=== PATIENT | male | born 1945 | race Caucasian/White ===

== ENCOUNTER → 2016-10-03 | Outpatient (CLI) | payer OTHER | LOC: FIMAGING 09:57 | PROVIDERS: ATTEND Internal Medicine Nephrology | DX: N18.3 Chronic kidney disease, stage 3 (moderate) (principal) ==

== ENCOUNTER → 2017-07-01 | Outpatient (CLI) | payer OTHER ==
[~2017-07-01] MED LIST: IOPAMIDOL (ISOVUE-300) 150 ML BTL ONE
== END ==
LOC: FIMAGING 11:21
PROVIDERS: ATTEND Physician Assistant Medical
DX: C61 Malignant neoplasm of prostate (principal); N13.30 Unspecified hydronephrosis; N20.0 Calculus of kidney
CPT/HCPCS: 74178; Q9967

== ENCOUNTER → 2017-07-14 | Outpatient (CLI) | payer OTHER ==
[~2017-07-14] MED LIST changes: +FUROSEMIDE 20 MG/2 ML VIAL ONE; +FUROSEMIDE 40 MG/4 ML VIAL ONE; -IOPAMIDOL (ISOVUE-300) 150 ML BTL ONE
== END ==
LOC: FIMAGING 12:39
PROVIDERS: ATTEND Physician Assistant Medical
DX: N13.0 Hydronephrosis with ureteropelvic junction obstruction (principal); C61 Malignant neoplasm of prostate
CPT/HCPCS: 78708; A9562; J1940

== ENCOUNTER → 2018-01-06 | Outpatient (CLI) | payer OTHER | LOC: FIMAGING 10:33 | PROVIDERS: ATTEND Physician Assistant Medical | DX: N20.1 Calculus of ureter (principal) | CPT/HCPCS: 78708; A9562; J1940 ==

== ENCOUNTER 2018-02-04 11:10 | Day surgery (SDC) | payer OTHER ==
--- NOTE | 2018-02-03 15:18 | GHP ---
DATE OF ADMISSION: 02/04/2018 This is a 72-year-old gentleman whom we have evaluated in the office, and he has a CAT scan that show s faint calcification of the proximal right ureter along with hydronephrosis. Mag 3 with Lasix showe d proximal obstruction of the right ureter with half-time of the T1 half excretion time of 19 minutes . At the present time, he is in to undergo right ureteroscopy with assessment of the proximal ureter . He has had a creatinine of 1.3 in 2018. PAST MEDICAL HISTORY: He has had atrial fibrillation, elevated PSA, and prostate cancer. PAST SURGICAL HISTORY: Lithotripsy, prostatectomy, tonsillectomy. MEDICATIONS: Aspirin, diltiazem, Synthroid. ALLERGIES: Codeine, phosphate, penicillins, and Pradaxa. FAMILY HISTORY: Colon cancer in family, heart disease, hypertension. SOCIAL HISTORY: Moderate alcohol consumption. Former smoker. REVIEW OF SYSTEMS: Negative cardiac, respiratory, GI, and endocrine. PHYSICAL EXAMINATION: VITAL SIGNS: Stable. CHEST: Clear. HEART: Regular rate and rhythm. ABDOM EN: Normal. No organomegaly, rebound, or guarding. He does have abdominal obesity, so at the present time he is admitted for the ureteroscopy. PLAN: We have discussed indications, complications associated with the procedure. Because of his mo rbid obesity, he has done as in the hospital and plan as an outpatient procedure, but if necessary wi ll be admitted overnight. /[id number]/MODL
--- NOTE | 2018-02-04 08:15 | PDHPUP ---
History & Physical Update H&P update statement: This history and physical update is based on an assessment of the patient which was completed after admission or registration (within 24 hours), but prior to the surgery/procedure. H&P update: H&P reviewed & patient examined, no change in patient's condition since H&P completed
[2018-02-04] MEDS ORDERED: ceFAZolin 2 GM/DEXTROSE 100 ML IV ONE (11:25)
[2018-02-04] MEDS ORDERED: LR 1,000 ML IV ONE (11:26)
[2018-02-04] MEDS ORDERED: LIDOCAINE 1% 2 ML INJ ID PRN (11:26)
--- NOTE | 2018-02-04 11:57 | POSTANESTH ---
Post Anesthetic Evaluation Cardiovascular Status: Normal, Stable Respiratory Status: Normal, Stable Level of Consciousness/Mental Status: Can Participate in Eval, Mildly Sleepy, Arousable Pain Control: Adequate, Prn Tx Ordered Nausea/Vomiting Control: Adequate, Prn Tx Ordered Complications Possibly Related to Anesthesia: None Noted
--- NOTE | 2018-02-04 12:01 | PDANEPAE ---
ANE History of Present Illness 72 yo male with multiple medical problems for ureteroscopy and stone removal. ANE Past Medical History - Cardiovascular History Hx Hypertension: No Hx Arrhythmias: Yes Hx Coronary Artery / Peripheral Vascular Disease: Yes Hx CHF / Valvular Disease: No Hx Palpitations: No Cardiovascular History Comment: 6 YR HX OF A -FIB 3 PREV CARDIOVERSIONS LAST CARDIOVERSION 04/2010; uncontrolled A-Fib led to AV node ablation and PM insertion - PM dependent! CHRONIC DYASTOLIC HEART FAILURE - Pulmonary History Hx COPD: Yes Hx Asthma/Reactive Airway Disease: No Hx Recent Upper Respiratory Infection: Yes Hx Oxygen in Use at Home: Yes O2 in Use at Home (L/minute): 4 Hx Sleep Apnea: Yes Sleep Apnea Screening Result - Last Documented: Positive Pulmonary History Comment: COPD. FARAZ BIPAP with 4 LPM O2 bleed in - Neurologic History Hx Cerebrovascular Accident: No Hx Seizures: No Hx Dementia: No - Endocrine History Hx Diabetes: No Hypothyroid: Yes Hyperthyroid: No Obesity: severe - Renal History Hx Renal Disorders: Yes Renal History Comment: RENAL INSUFFICIENCY. Kidney stones - Liver History Hx Hepatic Disorders: No - Neurological & Psychiatric Hx Hx Neurological and Psychiatric Disorders: No Neurological / Psychiatric History Comment: PERIPHERAL NEUROPATHY - Cancer History Hx Cancer: Yes Cancer History Comment: prostate, cyber knife readiation 2011 - Congenital Disorder History Hx Congenital Disorders: No - GI History Hx Gastrointestinal Disorders: Yes Gastrointestinal History Comment: CT showed diverticulosis. hiatal hernia - Other Health History Other Health History: MGUS. NON HEALING WOUND LT GALDAMEZ NOW HAS SCAB,TANG REDNESS. ARM RASH. CT scan showed plaque on aorta. SCLERA DERMA FOREARMS RESULT OF RX'S. OBESE HAS LOST 40LBS. NEUROPATHY - Chronic Pain History Chronic Pain: Yes (RELATED TO KIDNEY STONE AND DDD) - Surgical History Prior Surgeries: PACEMAKER 03/2014. tonsillectomy. lithotripsy UNSUCCESSFUL IN [place]. ANGIOGRAM. COLONOSCOPY ANE Review of Systems Review of Systems: - Exercise capacity METS (RN): 2 METS - Systems Constitutional: Reports: no symptoms Respiratory: Reports: shortness of breath, wheezing Genitourinary: Reports: flank pain - Pacemaker Pacemaker [place]: [place] Pacemaker Mode: VVIR Date Pacemaker Last Checked: 10/20/17 ANE Patient History - Allergies Allergies/Adverse Reactions: Penicillins Allergy (Unknown, Verified 03/29/14 02:42) Itching codeine Allergy (Verified 08/08/14 11:43) nausea dabigatran etexilate mesylate [From Pradaxa] Allergy (Verified 03/29/14 02:42) meperidine HCl [From Demerol] Allergy (Verified 11/27/14 12:27) - Home Medications Home Medications: Clobetasol Propionate/Emoll [Clobetasol Emollient 0.05% Crm] 15 gm TP BID [Last Taken 01/05/18] Herbals/Supplements -Info Only 1 ea PO DAILY 11/23/14 [Last Taken 02/03/18] Multivitamins [Multivitamin (*)] 1 each PO DAILY 11/23/14 [Last Taken 02/03/18] Apixaban [Eliquis] 5 mg PO BID@12/06/14 [Last Taken 02/03/18] Ascorbic Acid [Vitamin C 500 mg (*)] 1,000 mg PO DAILY 12/06/14 [Last Taken 02/09] Aspirin [Aspirin 81mg (*)] 81 mg PO DAILY 12/06/14 [Last Taken 02/03/18] Atorvastatin Calcium [Lipitor 20 mg (*)] 20 mg PO HS 12/06/14 [Last Taken ] Cholecalciferol Vit D3 [Vitamin D3 2000 units] 2,000 units PO DAILY 12/06/14 [ Last Taken 02/03/18] Cyanocobalamin [Vitamin B12 1000MCG/ML (*)] 1,000 mcg IJ Q30D 12/06/14 [Last Taken 01/31/18] Fluticasone Nasal [Flonase Nasal [place]] 2 sprays NASAL DAILY PRN 12/06/14 [Last Taken 02/04/18] Furosemide [Lasix 20 MG (*)] 20 mg PO DAILY@12 12/06/14 [Last Taken 02/04/18] Glucosamine/Chondroitin [Glucosamine/Chondroitin (*)] 1 each PO DAILY 12/06/14 [ Last Taken 02/03/18] Levothyroxine [Synthroid 50 mcg (*)] 50 mcg PO DAILY06 12/06/14 [Last Taken ] [place]-3 Fatty Acids [Fish Oil 1000 mg (*)] 1,000 mg PO DAILY 10/14/15 [Last Taken 02/03/18] Spironolactone 100 mg PO DAILY 12/06/14 [Last Taken 02/03/18] Gabapentin QID 02/02/18 [Last Taken 02/04/18] - NPO status NPO Since - Liquids (Date): 02/04/18 NPO Since - Liquids (Time): 10:00 (black coffee) - Anes Hx Anes Hx: no prior problems - Smoking Hx Smoking Status: Former smoker Marijuana use: Yes - Alcohol Use Alcohol Use: Occasionally - Family Anes Hx Family Anes Hx: neg - N/A Family Hx Anesthesia Complications: NONE ANE Labs/Vital Signs - Vital Signs Vital Signs: reviewed preoperatively; see RN documention for details Height: 182.88 cm Weight: 163.293 kg ANE Physical Exam - Airway Neck exam: decreased ROM Mallampati Score: Class 2 - Pulmonary Pulmonary: expiratory wheeze - Cardiovascular Cardiovascular: regular rate and rhythym - ASA Status ASA Status: IV ANE Anesthesia Plan Anesthesia Plan: GA w LMA
[2018-02-04] MEDS ORDERED: IPRATROPIUM/ALBUTEROL 3 ML DEYVIAL ONE (12:14)
[2018-02-04] MEDS ORDERED: IPRATROPIUM/ALBUTEROL 3 ML DEYVIAL IH ONE (12:22)
[2018-02-04] MEDS ORDERED: DEXAMETHASONE 4 MG/ML VIAL ONE (12:30)
[2018-02-04] MEDS ORDERED: LIDOCAINE 2% 2 ML INJ ONE (12:30)
[2018-02-04] MEDS ORDERED: fentaNYL 100 MCG/2 ML INJ ONE (12:31)
[2018-02-04] MEDS ORDERED: PROPOFOL 200 MG/20 ML VIAL ONE ×2 (12:31)
[2018-02-04] MEDS ORDERED: LIDOCAINE 2% JELLY 20 ML (UROJECT) ONE (12:33)
[2018-02-04] MEDS ORDERED: IOPAMIDOL (ISOVUE-M 300) 15 ML VIAL ONE (12:34)
[2018-02-04] MEDS ORDERED: ENALAPRILAT DIHYDRATE 1.25 MG/ML VIAL IVP PRN (13:21)
[2018-02-04] MEDS ORDERED: LR 500 ML IV PRN (13:21)
[2018-02-04] MEDS ORDERED: ACETAMINOPHEN 500 MG TAB PO PRN (13:21)
[2018-02-04] MEDS ORDERED: ONDANSETRON 4 MG/2 ML VIAL IVP PRN (13:21)
[2018-02-04] MEDS ORDERED: NALOXONE HCL 0.4 MG/ML INJ IVP PRN ×2 (13:21→13:22)
[2018-02-04] MEDS ORDERED: ALBUTEROL 3 ML DEYVIAL IH PRN (13:21)
[2018-02-04] MEDS ORDERED: fentaNYL 100 MCG/2 ML INJ IVP PRN (13:21)
--- NOTE | 2018-02-04 13:40 | POSTOPPROG ---
Post Op Note Date of Operation: 02/04/18 (dictated) Surgeon: Jose Ramon Jasso Anesthesiologist: Deanna Anesthesia: GET(General Endotracheal) Pre-op Diagnosis: rt hydronephrosis Post-op Diagnosis: rt ureteral stx Procedure: cysto, RUP, fluoroscopy, ureteroscopy, dilation of ureter, stent placement Inf/Abcess present in the surg proc area at time of surgery?: No EBL: Minimal Drains: Other (ureteral stent)
--- NOTE | 2018-02-04 14:54 | GOP ---
DATE OF OPERATION: 02/04/2018 SURGEON: Jose Ramon Jasso MD ANESTHESIA: General anesthesia. ANESTHESIOLOGIST: Drea Gonsales MD. PREOPERATIVE DIAGNOSIS: Right proximal ureteral stricture, possible stone. POSTOPERATIVE DIAGNOSIS: Right proximal ureteral stricture, possible stone. PROCEDURE PERFORMED: Cystoscopy, retrograde ureteral pyelogram, ureteral dilation, ureteroscopy, and placement of a stent. FINDINGS: DESCRIPTION OF PROCEDURE: After undergoing general anesthesia, appropriate time-out, and being prepp ed and draped in normal sterile fashion in dorsal lithotomy position, urethra was normal. Prostate w as normal. Bladder had no tumor, stones, foreign bodies, or diverticula. The right ureteral orifice was cannulated with a Stollings catheter and revealed that he had a proximal third ureteral stricture with dilation above that and no dilation below area of obstruction, and the n, I was able to pass a guidewire beyond that narrowed area and then placed a short ureteral access s sapna up to below that, and visualized the area with a flexible ureteroscope and could not pass throu gh the narrowed area, so at that point, I removed the short ureteral access sheath, used a long urete ral access sheath, was able to pass that beyond the stricture to the renal pelvis and then flexible c ystoscopy revealed that he had narrowing of the ureter with a lot of inflammatory reaction that actua lly pulling the scope back caused bleeding where I could not visualize the lumen or the mucosa well. other than just inflammatory part. It appeared at 1 view that he had a small submillimeter stone in the ureter that was somewhat felt to be imbedded in the ureteral wall, but because of the visualizati on and not really identifying a stone, and I dilated the ureter with the ureteral access sheath, elec kim to place a Multi-Link 6-[place] ureteral stent that curled in the renal pelvis, curled in the blad kirit, and Uro-jet placed in the urethra and Prieto catheter placed. He will be discharged home and to see me in the office in 3 weeks to consider further assessment eval uation. /[id number]/MODL
[2018-02-04 17:27] VITALS: BP 133/88
== END 2018-02-04 17:25 | disposition home or self-care (01) ==
LOC: FSGY 11:10
PROVIDERS: ATTEND Specialist
DX: N13.1 Hydronephrosis with ureteral stricture, not elsewhere classified (principal); I48.91 Unspecified atrial fibrillation; I50.22 Chronic systolic (congestive) heart failure; G62.9 Polyneuropathy, unspecified; G47.33 Obstructive sleep apnea (adult) (pediatric); Z85.46 Personal history of malignant neoplasm of prostate; Z87.891 Personal history of nicotine dependence
CPT/HCPCS: 52344; 76001; C1758; C1769; C1894; C2625; J0690; J1100; J2704; J3010; Q9967

== ENCOUNTER 2018-03-13 11:29 | Inpatient (IN) | payer OTHER ==
--- NOTE | 2018-03-13 12:07 | EDPHY ---
H & P Stated Complaint: dysuria/hematuria Time Seen by Provider: 03/13/18 11:47 HPI/ROS: CHIEF COMPLAINT: Hematuria and urgency HISTORY OF PRESENT ILLNESS: The patient is a 72-year-old man with history of atrial fibrillation on Eliquis also remote history of prostate cancer treated with CyberKnife 7 years ago and no known recurrence. He was discovered a month ago to have a microscopic hematuria. He has worked up by Dr. Jasso from Urology and on February 04 had scope that revealed a right proximal ureteral stricture as well as a possible stone. His stricture was dilated and he had a stent placed. He states that he has had mild bleeding ever since the procedure but seemed to improve but then worsened again this week. He has also noticed increased frequency and urgency this week. No fever. He was concerned about an infection and called the nurse to ask for antibiotics. They recommended he come to the ER. He also has a history of CHF and COPD and lumbar stenosis. No weakness or numbness. Ambulates without difficulty. Severity: Moderate Modifying factors: None REVIEW OF SYSTEMS: Constitutional: denies: chills, fever, recent illness, recent injury EENTM: denies: blurred vision, double vision, nose congestion Respiratory: denies: cough, shortness of breath Cardiac: denies: chest pain, irregular heart rate, lightheadedness, palpitations Gastrointestinal/Abdominal: denies: abdominal pain, diarrhea, nausea, vomiting, blood streaked stools Genitourinary: See HPI Musculoskeletal: Mild chronic low back pain unchanged Skin: denies: lesions, rash, jaundice, bruising Neurological: denies: headache, numbness, paresthesia, tingling, dizziness, weakness Hematologic/Lymphatic: denies: blood clots, easy bleeding, easy bruising Immunologic/allergic: denies: HIV/AIDS, transplant 10 systems reviewed and negative except as noted EXAM: GENERAL: Well-appearing, obese and in no acute distress. HEAD: Atraumatic, normocephalic. EYES: Pupils equal round and reactive to light, extraocular movements intact, sclera anicteric, conjunctiva are normal. ENT: TMs normal, nares patent, oropharynx clear without exudates. Moist mucous membranes. NECK: Normal range of motion, supple without lymphadenopathy or JVD. LUNGS: Breath sounds clear to auscultation bilaterally and equal. No wheezes rales or rhonchi. HEART: Regular rate and rhythm without murmurs, rubs or gallops. ABDOMEN: Soft, nontender, normoactive bowel sounds. No guarding, no rebound. No masses appreciated. BACK: No CVA tenderness, no spinal tenderness, step-offs or deformities EXTREMITIES: Normal range of motion, no pitting or edema. No clubbing or cyanosis. NEUROLOGICAL: Cranial nerves II through XII grossly intact. Normal speech, normal gait. 5/5 strength, normal movement in all extremities, normal sensation , normal reflexes PSYCH: Normal mood, normal affect. SKIN: Warm, dry, normal turgor, no visible rashes or lesions. Source: Patient Exam Limitations: No limitations - Personal History Current Tetanus/Diphtheria Vaccine: Yes Tetanus Vaccine Date: within 10 years - Medical/Surgical History Hx Asthma: No Hx Chronic Respiratory Disease: Yes Hx Diabetes: No Hx Cardiac Disease: Yes Hx Renal Disease: No Hx Cirrhosis: No Hx Alcoholism: No Hx HIV/AIDS: No Hx Splenectomy or Spleen Trauma: No Other PMH: a fib, copd, prostate ca, anemia, sleep apnea, BPH, perpheral neuropathy, PPM for SSS, High cholesterol, left cellulitis, sclerderma, CHF, right ureteral stricture with stent in place - Family History Significant Family History: No pertinent family hx - Social History Smoking Status: Former smoker Alcohol Use: None Constitutional: Initial Vital Signs Temperature (C) 36.3 C 03/13/18 11:32 Heart Rate 70 03/13/18 11:32 Respiratory Rate 18 03/13/18 11:32 Blood Pressure 145/81 H 03/13/18 11:32 O2 Sat (%) 96 03/13/18 11:32 O2 Delivery Mode Room Air Allergies/Adverse Reactions: Penicillins Allergy (Unknown, Verified 03/13/18 11:36) Itching codeine Allergy (Verified 03/13/18 11:36) nausea dabigatran etexilate mesylate [From Pradaxa] Allergy (Verified 03/13/18 14:12) UPSET STOMACH meperidine HCl [From Demerol] Allergy (Verified 03/13/18 14:12) NAUSEA Home Medications: Medication Instructions Recorded Clobetasol Propionate/Emoll 15 gm TP BID PRN 11/23/14 [Clobetasol Emollient 0.05% Crm] Herbals/Supplements -Info Only 1 ea PO DAILY 11/23/14 Multivitamins [Multivitamin (*)] 1 each PO DAILY 11/23/14 Apixaban [Eliquis] 2.5 mg PO BID@08,17 12/06/14 Ascorbic Acid [Vitamin C 500 mg 1,000 mg PO DAILY 12/06/14 (*)] Aspirin [Aspirin 81mg (*)] 81 mg PO DAILY 12/06/14 Atorvastatin Calcium [Lipitor 20 20 mg PO HS 12/06/14 mg (*)] Cholecalciferol Vit D3 [Vitamin D3 2,000 units PO DAILY 12/06/14 2000 units] Cyanocobalamin [Vitamin B12 1,000 mcg IJ Q30D 12/06/14 1000MCG/ML (*)] Fluticasone Nasal [Flonase Nasal 2 sprays NASAL DAILY 12/06/14 [place]] Furosemide [Lasix 20 MG (*)] 20 mg PO DAILY 12/06/14 Glucosamine/Chondroitin 1 each PO DAILY 12/06/14 [Glucosamine/Chondroitin (*)] Levothyroxine [Synthroid 50 mcg 50 mcg PO DAILY06 12/06/14 (*)] [place]-3 Fatty Acids [Fish Oil 1000 1,000 mg PO DAILY 12/06/14 mg (*)] Spironolactone 100 mg PO DAILY@12 12/06/14 Gabapentin [Neurontin 300 MG (*)] 600 mg PO QID 03/13/18 Acetaminophen [Tylenol 325mg (*)] 650 mg PO Q4HRS PRN tab 03/14/18 Metoprolol Tartrate [Lopressor 25 25 mg PO BID tab 03/14/18 mg (*)] Medical Decision Making ED Course/Re-evaluation: Patient's urinalysis is concerning for UTI especially considering his symptoms of increased frequency and urgency. I will start him on Levaquin. I suggested admission to the hospital because of the stent that is in place makes him high risk for infection and sepsis. He understands. I spoke with Dr. Frederick who agrees and requests Levaquin. Blood work is now being drawn. Differential Diagnosis: Partial list of the Differential diagnosis considered include but were not limited to; complicated urinary tract infection, hematuria, sepsis and although unlikely based on the history and physical exam, I also considered perforation, severe sepsis. - Data Points Laboratory Results: Laboratory Results 03/13/18 13:51 03/13/18 13:51 Microbiology Results: MICROBIOLOGY 03/13/18 12:20 Unspecified Urine Culture - Final 03/13/18 13:51 Blood Blood Culture - Preliminary Medications Given: Discontinued Medications Aspirin (Aspirin) 81 mg PO DAILY JULIANNA Stop: 09/10/18 08:59 Last Admin: 03/14/18 08:08 Dose: 81 mg Atorvastatin Calcium (Lipitor) 20 mg PO HS JULIANNA Stop: 09/09/18 20:59 Last Admin: 03/13/18 20:47 Dose: 20 mg Fluticasone Propionate (Flonase Nasal [place]) 2 sprays [place] DAILY JULIANNA Stop: 09/10/18 08:59 Last Admin: 03/14/18 08:19 Dose: 2 sprays Furosemide (Lasix) 20 mg PO DAILY JULIANNA Stop: 09/10/18 08:59 Last Admin: 03/14/18 08:09 Dose: 20 mg Gabapentin (Neurontin) 600 mg PO QID JULIANNA Stop: 09/09/18 20:59 Last Admin: 03/14/18 13:11 Dose: 600 mg Levofloxacin/Dextrose (Levaquin 750 Mg (Premix)) 150 mls @ 100 mls/hr IV EDNOW ONE PRN Reason: Protocol Stop: 03/13/18 15:14 Last Admin: 03/13/18 15:07 Dose: 150 mls Levofloxacin/Dextrose (Levaquin 750 Mg (Premix)) 150 mls @ 100 mls/hr IV DAILY JULIANNA PRN Reason: Protocol Stop: 04/13/18 08:59 Last Admin: 03/14/18 08:09 Dose: 150 mls Levothyroxine Sodium (Synthroid) 50 mcg PO DAILY06 JULIANNA Stop: 09/10/18 05:59 Last Admin: 03/14/18 06:57 Dose: 50 mcg Metoprolol Tartrate (Lopressor) 25 mg PO BID JULIANNA Stop: 09/09/18 16:44 Last Admin: 03/14/18 08:09 Dose: 25 mg Spironolactone (Aldactone) 100 mg PO DAILY@12 [facility] Stop: 09/10/18 11:59 Last Admin: 03/14/18 13:11 Dose: 100 mg Departure - Departure Disposition: [facility] Inpatient Acute Clinical Impression: Complicated urinary tract infection Condition: Good
[2018-03-13 14:08] LABS: PLATELET COUNT 243 10^3/uL (150-400)
[2018-03-13 14:17] LABS: INR 1.02 (0.83-1.16); PROTIME(PATIENT) 13.6 SEC (12.0-15.0)
[2018-03-13] MEDS ORDERED: ONDANSETRON DISINTEGRATING 4 MG TAB PO PRN (16:18)
[2018-03-13] MEDS ORDERED: ONDANSETRON 4 MG/2 ML VIAL IVP PRN (16:18)
[2018-03-13] MEDS ORDERED: ACETAMINOPHEN 325 MG TAB PO PRN (16:18)
[2018-03-13] MEDS ORDERED: CLOBETASOL 0.05% 15 GM CRTUBE TP PRN (16:21)
--- NOTE | 2018-03-13 16:49 | PDGENHP ---
History and Physical - Chief Complaint urinary frequency, hematuria, flank pain - History of Present Illness 72 yo male with multiple medical problems including A fib, on eliquis, pacemaker for SSS, chronic HF, COPD, peripheral neuropathy and history of prostate cancer with recent ureteral stent placement presents with urinary symptoms. He is followed by Dr. Jasso for hematuria and CT in 06/2017 showed severe right sided hydronephrosis with ureteral stones and stricture. A ureteral stent was placed in 01/2018. Over the past few days, he has noticed urinary frequency, urgency and hematuria. He also endorses mild right flank pain. He denies fevers, chills or rigors. No nausea or vomiting. He also denies CP or SOB, but does report a recent episode of V tac, seen on an outpatient monitor by his heel sprayer first. He has plans for an outpatient stress test and was prescribed metoprolol, but has not filled that Rx yet. In the ED, UA shows marked pyuria and hematuria. He is not septic appearing. He was given IV Levaquin and is admitted for further management. History Information - Allergies/Home Medication List Allergies/Adverse Reactions: Penicillins Allergy (Unknown, Verified 03/13/18 11:36) Itching codeine Allergy (Verified 03/13/18 11:36) nausea dabigatran etexilate mesylate [From Pradaxa] Allergy (Verified 03/13/18 14:12) UPSET STOMACH meperidine HCl [From Demerol] Allergy (Verified 03/13/18 14:12) NAUSEA Home Medications: Clobetasol Propionate/Emoll [Clobetasol Emollient 0.05% Crm] 15 gm TP BID PRN [Last Taken 01/05/18] Herbals/Supplements -Info Only 1 ea PO DAILY 11/23/14 [Last Taken 03/13/18] Multivitamins [Multivitamin (*)] 1 each PO DAILY 11/23/14 [Last Taken 03/13/18] Apixaban [Eliquis] 2.5 mg PO BID@,17 12/06/14 [Last Taken 03/13/18] Ascorbic Acid [Vitamin C 500 mg (*)] 1,000 mg PO DAILY 12/06/14 [Last Taken ] Aspirin [Aspirin 81mg (*)] 81 mg PO DAILY 12/06/14 [Last Taken 03/13/18] Atorvastatin Calcium [Lipitor 20 mg (*)] 20 mg PO HS 12/06/14 [Last Taken ] Cholecalciferol Vit D3 [Vitamin D3 2000 units] 2,000 units PO DAILY 12/06/14 [ Last Taken 03/13/18] Cyanocobalamin [Vitamin B12 1000MCG/ML (*)] 1,000 mcg IJ Q30D 12/06/14 [Last Taken 03/01/18] Fluticasone Nasal [Flonase Nasal [place]] 2 sprays NASAL DAILY 12/06/14 [Last Taken 03/13/18] Furosemide [Lasix 20 MG (*)] 20 mg PO DAILY 12/06/14 [Last Taken 03/13/18] Glucosamine/Chondroitin [Glucosamine/Chondroitin (*)] 1 each PO DAILY 12/06/14 [ Last Taken 03/13/18] Levothyroxine [Synthroid 50 mcg (*)] 50 mcg PO DAILY06 12/06/14 [Last Taken ] [place]-3 Fatty Acids [Fish Oil 1000 mg (*)] 1,000 mg PO DAILY 12/06/14 [Last Taken 03/13/18] Spironolactone 100 mg PO DAILY@12 12/06/14 [Last Taken 03/12/18] Gabapentin [Neurontin 300 MG (*)] 600 mg PO QID 03/13/18 [Last Taken 03/13/18] I have personally reviewed and updated: family history, medical history, social history, surgical history - Past Medical History atrial fibrillation, COPD, hypertension, hyperlipidemia Additional medical history: prostate cancer. ureteral stricture s/p right ureteral stent 01/2018. peripheral neuropathy. chronic HF. spinal stenosis. SSS s/p pacemaker. anemia - Surgical History Additional surgical history: Cyberknife tx of prostate cancer. pacemaker - Family History Positive for: non-pertinent - Social History Smoking Status: Former smoker Alcohol Use: None Drug Use: None Additional social history: Retired Review of Systems Review of Systems: ROS: 10pt was reviewed & negative except for what was stated in HPI & below Physical Exam Physical Exam: Temp Pulse Resp BP Pulse Ox 36.4 C 72 18 142/90 H 94 03/13/18 16:31 03/13/18 16:31 03/13/18 16:31 03/13/18 16:31 03/13/18 16:31 Constitutional: no apparent distress Eyes: PERRL Ears, Nose, Mouth, Throat: moist mucous membranes Cardiovascular: regular rate and rhythym Respiratory: no respiratory distress, clear to auscultation Gastrointestinal: normoactive bowel sounds, soft, non-tender abdomen Genitourinary: other (+right CVA tenderness) Skin: warm Musculoskeletal: full muscle strength Neurologic: AAOx3 Psychiatric: interacting appropriately Lab Data & Imaging Review 03/13/18 13:51 03/13/18 13:51 WBC 7.25 10^3/uL (3.80-9.50) 03/13/18 13:51 RBC 4.54 10^6/uL (4.40-6.38) 03/13/18 13:51 Hgb 14.5 g/dL (13.7-17.5) 03/13/18 13:51 Hct 43.3 % (40.0-51.0) 03/13/18 13:51 MCV 95.4 fL (81.5-99.8) 03/13/18 13:51 MCH 31.9 pg (27.9-34.1) 03/13/18 13:51 MCHC 33.5 g/dL (32.4-36.7) 03/13/18 13:51 RDW 13.7 % (11.5-15.2) 03/13/18 13:51 Plt Count 243 10^3/uL (150-400) 03/13/18 13:51 MPV 9.8 fL (8.7-11.7) 03/13/18 13:51 Neut % (Auto) 68.1 % (39.3-74.2) 03/13/18 13:51 Lymph % (Auto) 18.1 % (15.0-45.0) 03/13/18 13:51 [place] % (Auto) 11.0 % (4.5-13.0) 03/13/18 13:51 Eos % (Auto) 1.5 % (0.6-7.6) 03/13/18 13:51 Baso % (Auto) 0.6 % (0.3-1.7) 03/13/18 13:51 Nucleat RBC Rel Count 0.0 % (0.0-0.2) 03/13/18 13:51 Absolute Neuts (auto) 4.94 10^3/uL (1.70-6.50) 03/13/18 13:51 Absolute Lymphs (auto) 1.31 10^3/uL (1.00-3.00) 03/13/18 13:51 Absolute Monos (auto) 0.80 10^3/uL (0.30-0.80) 03/13/18 13:51 Absolute Eos (auto) 0.11 10^3/uL (0.03-0.40) 03/13/18 13:51 Absolute Basos (auto) 0.04 10^3/uL (0.02-0.10) 03/13/18 13:51 Absolute Nucleated RBC 0.00 10^3/uL (0-0.01) 03/13/18 13:51 Immature Gran % 0.7 % (0.0-1.1) 03/13/18 13:51 Immature Gran # 0.05 10^3/uL (0.00-0.10) 03/13/18 13:51 PT 13.6 SEC (12.0-15.0) 03/13/18 13:51 INR 1.02 (0.83-1.16) 03/13/18 13:51 APTT 27.9 SEC (23.0-38.0) 03/13/18 13:51 VBG Lactic Acid 1.2 mmol/L (0.7-2.1) 03/13/18 13:51 Sodium 137 mEq/L (135-145) 03/13/18 13:51 Potassium 4.8 mEq/L (3.5-5.2) 03/13/18 13:51 Chloride 104 mEq/L (97-110) 03/13/18 13:51 Carbon Dioxide 25 mEq/l (22-31) 03/13/18 13:51 Anion Gap 8 mEq/L (6-14) 03/13/18 13:51 BUN 22 mg/dL (7-23) 03/13/18 13:51 Creatinine 1.2 mg/dL (0.7-1.3) 03/13/18 13:51 Estimated GFR 59 03/13/18 13:51 Glucose 103 mg/dL (70-100) H 03/13/18 13:51 Calcium 9.0 mg/dL (8.5-10.4) 03/13/18 13:51 Total Bilirubin 0.5 mg/dL (0.1-1.4) 03/13/18 13:51 Urine Color RED 03/13/18 12:20 Urine Appearance CLOUDY 03/13/18 12:20 Urine pH TNP 03/13/18 12:20 Ur Specific [place] TNP 03/13/18 12:20 Urine Protein TNP 03/13/18 12:20 Urine Ketones TNP 03/13/18 12:20 Urine Blood TNP 03/13/18 12:20 Urine Nitrate TNP 03/13/18 12:20 Urine Bilirubin TNP 03/13/18 12:20 Urine Urobilinogen TNP 03/13/18 12:20 Ur Leukocyte Esterase TNP 03/13/18 12:20 Urine RBC 50-182 /hpf (0-3) H 03/13/18 12:20 Urine WBC 50-182 /hpf (0-3) H 03/13/18 12:20 Ur Epithelial Cells NONE SEEN /lpf (NONE-1+) 03/13/18 12:20 Urine Glucose TNP 03/13/18 12:20 Assessment & Plan Assessment: Complicated urinary tract infection (Acute) - No sepsis. Nl lactate, afebrile, nl wbc's. His right sided hydro is chronic, unchanged from 06/2017. Discussed with Dr. Ken, urology, who notes this is not unexpected and doubts occlusion of the stent. Recommends atbx and monitor. If he continues to do well, can f/u outpt with urology for consideration of stent exchange. -cont IV levaquin -follow culture data Hematuria - could be related to stent and/or infection -atbx as above -hold eliquis for now A fib s/p pacemaker for SSS - rate controlled -check ekg -cont ASA, but hold eliquis as above until more clear he will not need urologic procedure Recent episode of v tac -start metoprolol 25 mg bid -outpt stress test -monitor on telemetry Neuropathy - cont gabapentin COPD - stable, no e/o exacerbation -cont home meds Hyperlipidemia - cont statin HF - no e/o exacerbation FARAZ Full code Dispo - admit to inpatient, anticipate >48 hrs hospitalization for complicated UTI
[2018-03-13] MEDS: METOPROLOL TARTRATE 25 MG TAB PO SCH ×2 (17:36→20:47)
[2018-03-13] MEDS: GABAPENTIN 300 MG CAP PO SCH (20:47)
[2018-03-13] MEDS ORDERED: ATORVASTATIN CALCIUM 20 MG TAB PO SCH (21:00)
[2018-03-14 05:36] LABS: PLATELET COUNT 219 10^3/uL (150-400)
[2018-03-14] MEDS ORDERED: LEVOTHYROXINE 50 MCG TAB PO SCH (06:00)
[2018-03-14] MEDS: GABAPENTIN 300 MG CAP PO SCH ×2 (06:59→13:11)
[2018-03-14] MEDS: METOPROLOL TARTRATE 25 MG TAB PO SCH (08:09)
--- NOTE | 2018-03-14 08:53 | PDMN ---
Medical Necessity Medical necessity: Pt meets inpt criteria per MD order and MCG M-300, Urinary Tract Infection. 72 y/o w/complicated acute UTI presenting w/urinary urgency/ frequency/hematuria/pyuria, hx recent ureteral stent placement 01/2018. IV abx's , cultures pending. Other PMHx includes COPD, prostate ca, afib, PPM for SSS, CHF, periph neuropathy, recent v-tach. Est los>2MN for ongoing eval/management of above.
[2018-03-14] MEDS ORDERED: FUROSEMIDE 20 MG TAB PO SCH (09:00)
[2018-03-14] MEDS ORDERED: FLUTICASONE NASAL 120 SPRAYS/16 GM MDI EACHNARE SCH (09:00)
[2018-03-14] MEDS ORDERED: ASPIRIN 81 MG CHEWABLE TAB PO SCH (09:00)
--- NOTE | 2018-03-14 09:52 | ASMTCMCOM ---
CM Note CM Note Notes: 03/14/2018 Case Management Note Reviewed chart. Pt admitted for complicated UTI. Pt has history of COPD, heart failure and prostate cancer. There is a cardiac rehab consult and transitional care consult pending. Case Management d/c needs are unclear at this time. Anticipating independent with follow up as directed. Case Management d/c poc: to be determined. Case Management to follow. Date Signed: 03/14/2018 09:51 AM Electronically Signed By:Josee Mg RN
[2018-03-14 11:19] VITALS: BP 108/65
[2018-03-14] MEDS ORDERED: SPIRONOLACTONE 100 MG TAB PO SCH (12:00)
--- NOTE | 2018-03-14 15:09 | ASDISCHSUM ---
Discharge Information Plan Status:Home with No Needs Medically Cleared to Leave:03/13/2018 Discharge Date:03/14/2018 02:58 PM CM D/C Disposition:Home, Routine, Self-Care ADT D/C Disposition:Home, Routine, Self-Care Projected Discharge Date:03/14/2018 02:58 PM Transportation at D/C: Discharge Delay Reason: Follow-Up Date:03/14/2018 02:58 PM Discharge Slot: Final Diagnosis: Placement Information Patient Contact Information Contact Name:JANETAYLA Relationship:Son Address: City:[place] Alternate Phone: [facility] Code:[place] Email: Financial Information Financial Class:Medicare Advantage Plans Primary Plan Desc:[facility] [employer] PLANS Primary Plan Number:[id number] Secondary Plan Desc: Secondary Plan Number: Assessment Information LACE LACE Length of stay for Answers: 1 day current admission Acuity / Level of Answers: Yes Care: Did the patient have an inpatient admission? Comorbidities - select Answers: Any tumor (including all that apply lymphoma or leukemia) Chronic pulmonary disease Congestive heart failure Other Notes: afib, SSS with pacer, prostate cancer, Score: 11 Date Signed: 03/14/2018 03:08 PM Electronically Signed By:Josee Mg RN [facility] CM Progress Note CM Note CM Note Notes: 03/14/2018 Case Management Note Reviewed chart. Pt admitted for complicated UTI. Pt has history of COPD, heart failure and prostate cancer. There is a cardiac rehab consult and transitional care consult pending. Case Management d/c needs are unclear at this time. Anticipating independent with follow up as directed. Case Management d/c poc: to be determined. Case Management to follow. Date Signed: 03/14/2018 09:51 AM Electronically Signed By:Josee Mg RN Case Management Discharge Plan Note Case Management Discharge Discharge Order Complete? Answers: Yes Patient to Obtain Answers: Independently Medications Discharge Comments Notes: 03/14/2018 Case Management Note Pt discharged independent with follow up as directed. Date Signed: 03/14/2018 03:09 PM Electronically Signed By:Josee Mg RN Intervention Information Intervention Type:*Incorrect Registration Date of Service:03/14/2018 08:59 AM Patient Type:Inpatient Staff Member:GIANCARLO Ayala, Alea Hours: Discipline: Severity: Comment:
--- NOTE | 2018-03-14 15:55 | GDS ---
DISCHARGE DIAGNOSES: 1. Urinary frequency and flank pain. 2. Pyuria and hematuria likely secondary to ureteral stent. 3. Right-sided hydronephrosis, status post right ureteral stent. 4. Atrial fibrillation. 5. Chronic anticoagulation. 6. Nonsustained ventricular tachycardia with plans for outpatient stress test next week and cardiology followup. 7. Neuropathy. On gabapentin. 8. Chronic obstructive pulmonary disease, stable. 9. Heart failure, stable. 10. Obstructive sleep apnea. On continuous positive airway pressure. 11. Hyperlipidemia. HISTORY: For details, please see history and physical dated March 13, 2018. In brief, the patient is a 72-year-old male with a history of multiple medical problems, including hematuria and right-sided hydronephrosis in the setting of ureteral stones and ureteral stricture. He underwent ureteral stent placement in January 2018. Over the past few days he has had increased urinary urgency with concern for gross hematuria. In the emergency department, urinalysis revealed pyuria and hematuria. He was admitted to the hospital for presumed complicated UTI. HOSPITAL COURSE: Patient was initially treated with Levaquin and received 2 days of this. However, his urine culture is negative. He has had no signs of sepsis with a normal white blood cell count, no fevers, and a normal lactate. A urology consult was requested, and they offered phone advice. They acknowledged that though his ultrasound revealed severe right-sided hydronephrosis, this was actually similar to the appearance in June, and Dr. Ken describes this as expected. There is no reason to believe his ureteral stent is obstructed. I suspect he is having ongoing irritation from the stent causing his symptoms, and I recommend he have close outpatient followup with Urology, who did not see him in the hospital. He also reported a recent episode of ventricular tachycardia which his diesel locomotive firer identified. He was started on oral metoprolol 25 mg twice daily here with no recurrent evidence of ventricular tachycardia on telemetry. We discussed his use of aspirin and Eliquis. Although he is concerned about ongoing hematuria, he has had no drop in his hemoglobin, and he has no evidence of anemia. Therefore, I have no strong indication for him to stop his Eliquis or aspirin. He will have close followup with Urology, and should he warrant any further urologic interventions, he can hold his Eliquis at their request if indicated. Otherwise , he will have close outpatient followup with Cardiology. DISPOSITION: Patient is discharged home in stable condition. FOLLOWUP: 1. Dr. Sosa Peck, urology. 2. Dr. Esau Rhoades, primary care. 3. Dr. Daniel Washington, Cardiology. He plans to undergo a stress test next week. DISCHARGE MEDICATIONS: Please see [employer] completed outpatient medication list. New medications on discharge include metoprolol 25 mg p.o. b.i.d. and Tylenol 650 p.o. q.4 hours p.r.n. He will continue all other outpatient medications previously prescribed. ADDENDUM: The patient actually made a more rapid recovery than anticipated and had unanticipated early discharge. /[id number]/MODL and [id number]/MODL [facility]
== END 2018-03-14 14:58 | disposition home or self-care (01) | DRG 699 ==
LOC: OBSVTOIN 13:57 → F3E 15:33
PROVIDERS: ADMIT Student in an Organized Health Care Education/Training Program; ATTEND Student in an Organized Health Care Education/Training Program
DX: T83.592A Infection and inflammatory reaction due to indwelling ureteral stent, initial encounter (principal); I47.2 Ventricular tachycardia; I48.91 Unspecified atrial fibrillation; G62.9 Polyneuropathy, unspecified; J44.9 Chronic obstructive pulmonary disease, unspecified; I50.9 Heart failure, unspecified; G47.33 Obstructive sleep apnea (adult) (pediatric); E78.00 Pure hypercholesterolemia, unspecified; Z79.01 Long term (current) use of anticoagulants; Z79.82 Long term (current) use of aspirin; Z95.0 Presence of cardiac pacemaker; Z85.46 Personal history of malignant neoplasm of prostate; Z88.0 Allergy status to penicillin
CPT/HCPCS: 96365; J1956

== ENCOUNTER 2018-06-08 07:45 | Day surgery (SDC) | payer OTHER ==
[2018-06-08] MEDS ORDERED: MIDAZOLAM 2 MG/2 ML VIAL IVP ONE (07:49)
[2018-06-08] MEDS ORDERED: NS 500 ML IV ONE (07:49)
[2018-06-08] MEDS ORDERED: BENZOCAINE UNIT DOSE SPRAY HURRICAINE MM ONE (07:49)
[2018-06-08] MEDS ORDERED: PROPOFOL/EMULSION 500 MG/50 ML BOTTLE IV ONE (09:17)
[2018-06-08] MEDS ORDERED: PROPOFOL 200 MG/20 ML VIAL ONE (09:17)
[2018-06-08] MEDS ORDERED: LIDOCAINE 2% 100 MG/5 ML SYR ONE (09:20)
--- NOTE | 2018-06-08 09:36 | PDHPUP ---
History & Physical Update H&P update statement: This history and physical update is based on an assessment of the patient which was completed after admission or registration (within 24 hours), but prior to the surgery/procedure. Mr. Little presents for pre operative DON in anticipation of watchman device. Risks and benefits of DON have been discussed in detail. Pt agrees to pursue. Consents signed. H&P update: H&P reviewed & patient examined, no change in patient's condition since H&P completed
--- NOTE | 2018-06-08 09:38 | PDANEPAE ---
ANE Past Medical History - Cardiovascular History Hx Hypertension: No Hx Arrhythmias: Yes Hx Coronary Artery / Peripheral Vascular Disease: Yes Hx CHF / Valvular Disease: No Hx Palpitations: No Cardiovascular History Comment: 6 YR HX OF A -FIB 3 PREV CARDIOVERSIONS LAST CARDIOVERSION 04/2010; uncontrolled A-Fib led to AV node ablation and PM insertion - PM dependent! CHRONIC DYASTOLIC HEART FAILURE - Pulmonary History Hx COPD: Yes Hx Asthma/Reactive Airway Disease: No Hx Recent Upper Respiratory Infection: Yes Hx Oxygen in Use at Home: Yes Hx Sleep Apnea: Yes Pulmonary History Comment: COPD. FARAZ BIPAP with 4 LPM O2 bleed in - Neurologic History Hx Cerebrovascular Accident: No Hx Seizures: No Hx Dementia: No - Endocrine History Hx Diabetes: No Obesity: yes, severe Endocrine History Comment: HYPOTHYROID - Renal History Hx Renal Disorders: Yes Renal History Comment: RENAL INSUFFICIENCY. Kidney stones - Liver History Hx Hepatic Disorders: No - Neurological & Psychiatric Hx Hx Neurological and Psychiatric Disorders: No Neurological / Psychiatric History Comment: PERIPHERAL NEUROPATHY - Cancer History Hx Cancer: Yes Cancer History Comment: prostate, cyber knife readiation 2011 - Congenital Disorder History Hx Congenital Disorders: No - GI History Hx Gastrointestinal Disorders: Yes Gastrointestinal History Comment: CT showed diverticulosis. hiatal hernia - Other Health History Other Health History: MGUS. NON HEALING WOUND LT GALDAMEZ NOW HAS SCAB,TANG REDNESS. ARM RASH. CT scan showed plaque on aorta. SCLERA DERMA FOREARMS RESULT OF RX'S. OBESE HAS LOST 40LBS. NEUROPATHY - Chronic Pain History Chronic Pain: Yes (RELATED TO KIDNEY STONE AND DDD) - Surgical History Prior Surgeries: PACEMAKER 03/2014. tonsillectomy. lithotripsy UNSUCCESSFUL IN [place]. ANGIOGRAM. COLONOSCOPY ANE Review of Systems Review of Systems: - Pacemaker Date Pacemaker Last Checked: 10/20/17 ANE Patient History - Allergies Allergies/Adverse Reactions: Penicillins Allergy (Unknown, Verified 03/13/18 11:36) Itching codeine Allergy (Verified 03/13/18 11:36) nausea dabigatran etexilate mesylate [From Pradaxa] Allergy (Verified 03/13/18 14:12) UPSET STOMACH meperidine HCl [From Demerol] Allergy (Verified 03/13/18 14:12) NAUSEA - Home Medications Home Medications: Clobetasol Propionate/Emoll [Clobetasol Emollient 0.05% Crm] 15 gm TP BID PRN [Last Taken 06/04/18 21:00] Herbals/Supplements -Info Only 1 ea PO DAILY 11/23/14 [Last Taken 06/07/18 08:00 ] Multivitamins [Multivitamin (*)] 1 each PO DAILY 11/23/14 [Last Taken 06/07/18 08:00] Apixaban [Eliquis] 2.5 mg PO BID@12/06/14 [Last Taken 06/07/18 18:00] Ascorbic Acid [Vitamin C 500 mg (*)] 1,000 mg PO DAILY 12/06/14 [Last Taken 08:00] Aspirin [Aspirin 81mg (*)] 81 mg PO DAILY 12/06/14 [Last Taken 06/07/18 08:00] Atorvastatin Calcium [Lipitor 20 mg (*)] 20 mg PO HS 12/06/14 [Last Taken 21:00] Cholecalciferol Vit D3 [Vitamin D3 2000 units] 2,000 units PO DAILY 12/06/14 [ Last Taken 06/07/18 08:00] Cyanocobalamin [Vitamin B12 1000MCG/ML (*)] 1,000 mcg IJ Q30D 12/06/14 [Last Taken 06/07/18 08:00] Fluticasone Nasal [Flonase Nasal [place]] 2 sprays NASAL DAILY 12/06/14 [Last Taken 06/08/18 07:00] Furosemide [Lasix 20 MG (*)] 20 mg PO DAILY 12/06/14 [Last Taken 06/07/18 08:00] Glucosamine/Chondroitin [Glucosamine/Chondroitin (*)] 1 each PO DAILY 12/06/14 [ Last Taken 06/07/18 08:00] Levothyroxine [Synthroid 50 mcg (*)] 50 mcg PO DAILY06 12/06/14 [Last Taken 07:00] [place]-3 Fatty Acids [Fish Oil 1000 mg (*)] 1,000 mg PO DAILY 12/06/14 [Last Taken 06/07/18 08:00] Spironolactone 100 mg PO DAILY@12 12/06/14 [Last Taken 06/07/18 12:00] Gabapentin [Neurontin 300 MG (*)] 600 mg PO QID 03/13/18 [Last Taken 06/07/18 20 :00] - Smoking Hx Smoking Status: Former smoker - Family Anes Hx Family Hx Anesthesia Complications: NONE ANE Labs/Vital Signs - Vital Signs Height: 179.1 cm Weight: 166.8 kg ANE Physical Exam - Airway Neck exam: FROM Mallampati Score: Class 3 Mouth exam: normal dental/mouth exam - Pulmonary Pulmonary: clear to auscultation, reduced air movement ANE Anesthesia Plan Anesthesia Plan: MAC
[2018-06-08] MEDS ORDERED: MIDAZOLAM 2 MG/2 ML VIAL ONE (09:47)
--- NOTE | 2018-06-08 10:16 | POSTANESTH ---
Post Anesthetic Evaluation Cardiovascular Status: Normal, Stable Respiratory Status: Normal, Stable Level of Consciousness/Mental Status: Can Participate in Eval Pain Control: Adequate, Prn Tx Ordered Nausea/Vomiting Control: Adequate, Prn Tx Ordered Complications Possibly Related to Anesthesia: None Noted
--- NOTE | 2018-06-08 11:36 | ECHO ---
[email or web address] [address] Main: [phone] Echocardiography Examination Transesophageal Name: ISRAEL CHANCE MR#: [id number] Study Date: 06/08/2018 Study Time: 09:34 AM Date of : 1945 Age: 73 year(s) Height: ( ) Weight: ( ) BSA: Gender: Male Examination: DON Contrast: Image Quality: Rhythm: Heart Rate: BP: / Indication: Pre Watchman Procedure Staff Referring Physician: Lumber Racker: Jared Yin RDCS Reading Physician: Nickolas Hoffman MD Requesting Provider: Ordering Physician: Nickolas Hoffman Indication: Pre Watchman Conclusions Left Atrium: The left atrium is severely dilated. Left Atrium Appendage: No thrombus is identified. 0 degrees 1.8 cm x 2.2 cm,45 degrees 1.7 cm x 2.2 cm,90 degrees 2.4 cm x 2.5 cm,135 degrees 2.2 cm x 2.5 cm IAS: There is increased thickness of the septum, consistent with lipomatous hypertrophy. Findings Left Ventricle: The EF is visually estimated to be 65 %. Left Atrium: The left atrium is severely dilated. Left Atrium Appendage: No thrombus is identified. 0 degrees 1.8 cm x 2.2 cm,45 degrees 1.7 cm x 2.2 cm,90 degrees 2.4 cm x 2.5 cm,135 degrees 2.2 cm x 2.5 cm IAS: There is increased thickness of the septum, consistent with lipomatous hypertrophy. Patient: ISRAEL CHANCE Study Date: 06/08/2018 Page 1 of 2 09:34 AM Mitral Valve: Mitral valve appears structurally normal. Trivial mitral regurgitation. Aortic Valve: The aortic valve is structurally normal and trileaflet. Pericardium: No pericardial effusion. Exam Details Procedure Ordered: DON (No Signature Object) Patient: ISRAEL CHANCE Study Date: 06/08/2018 Page 2 of 2 09:34 AM [id number]
--- NOTE | 2018-06-08 11:52 | CPR ---
[f rep st] NONINVASIVE CARDIAC PROCEDURE REPORT DATE OF PROCEDURE: 06/08/2018 PROCEDURE PERFORMED: Transesophageal echocardiogram. INDICATION FOR PROCEDURE: Preoperative evaluation for Watchman device in the setting of CHADS-VASc s core of 4. DESCRIPTION OF PROCEDURE: After informed consent was obtained for anesthesia and transesophageal ech ocardiogram, the patient had a bite block put in place. The patient was sedated with propofol, as we ll as Versed per Anesthesia. Once appropriate level of sedation was achieved, DON probe was passed w ithout incident. DON probe was used to take pictures of the left atrial appendage at 0 degrees, 45 d egrees, 90 degrees and 135 degrees. Interatrial septum was viewed. Mitral valve was evaluated. Ple ase see echo report for full details. Patient tolerated the procedure well. There were no postopera tive complications. PLAN: 1. The patient will be discharged home. 2. The patient will follow up with Dr. Ward for further discussion regarding Watchman closure eligio Lopez #: [id number]/MODL
== END 2018-06-08 11:01 | disposition home or self-care (01) ==
LOC: FCATH 07:45
PROVIDERS: ATTEND Internal Medicine Cardiovascular Disease
PROC: B245ZZ4 Ultrasonography of Left Heart, Transesophageal (ICD-10-PCS; principal; 2018-06-08)
DX: I48.91 Unspecified atrial fibrillation (principal); Z95.0 Presence of cardiac pacemaker; I50.32 Chronic diastolic (congestive) heart failure; R31.9 Hematuria, unspecified; Z01.810 Encounter for preprocedural cardiovascular examination; J44.9 Chronic obstructive pulmonary disease, unspecified; G47.33 Obstructive sleep apnea (adult) (pediatric); E03.9 Hypothyroidism, unspecified; N18.9 Chronic kidney disease, unspecified; Z85.46 Personal history of malignant neoplasm of prostate; Z87.891 Personal history of nicotine dependence
CPT/HCPCS: J2001; J2250; J2704

== ENCOUNTER 2018-06-30 06:45 | Inpatient (IN) | payer OTHER ==
[2018-06-30] MEDS ORDERED: NS 1,000 ML IV ONE (06:46)
[2018-06-30] MEDS ORDERED: IOPAMIDOL (ISOVUE-300) 100 ML BTL ONE ×2 (07:09→09:54)
[2018-06-30] MEDS ORDERED: LIDOCAINE 1% 300 MG/30 ML SDV ONE (07:09)
[2018-06-30] MEDS ORDERED: ceFAZolin 2 GM/DEXTROSE 100 ML IV ONE (07:30)
[2018-06-30] MEDS ORDERED: ceFAZolin 3 GM in D5W 100 ML IV ONE (07:30)
--- NOTE | 2018-06-30 08:02 | PDPROPOC ---
Sedation Plan of Care Sedation Plan of Care: mental status noted, patient educated of risks, benefits , alternatives, patient can tolerate sedation ASA Classification: ASA 2 Planned drugs: other Mallampati Score: Class 2 Mallampati Reference Image: Patient passed 3-3-2 rule?: Yes
--- NOTE | 2018-06-30 08:10 | PDANEPAE ---
ANE History of Present Illness here for watchman ANE Past Medical History - Cardiovascular History Hx Hypertension: No Hx Arrhythmias: Yes Hx Coronary Artery / Peripheral Vascular Disease: Yes Hx CHF / Valvular Disease: No Hx Palpitations: No Cardiovascular History Comment: 6 YR HX OF A -FIB 3 PREV CARDIOVERSIONS LAST CARDIOVERSION 04/2010; uncontrolled A-Fib led to AV node ablation and PM insertion - PM dependent! CHRONIC DYASTOLIC HEART FAILURE - Pulmonary History Hx COPD: Yes Hx Asthma/Reactive Airway Disease: No Hx Recent Upper Respiratory Infection: Yes Hx Oxygen in Use at Home: Yes Hx Sleep Apnea: Yes Pulmonary History Comment: COPD. FARAZ BIPAP with 4 LPM O2 bleed in - Neurologic History Hx Cerebrovascular Accident: No Hx Seizures: No Hx Dementia: No - Endocrine History Hx Diabetes: No Endocrine History Comment: HYPOTHYROID - Renal History Hx Renal Disorders: Yes Renal History Comment: RENAL INSUFFICIENCY. Kidney stones - Liver History Hx Hepatic Disorders: No - Neurological & Psychiatric Hx Hx Neurological and Psychiatric Disorders: No Neurological / Psychiatric History Comment: PERIPHERAL NEUROPATHY - Cancer History Hx Cancer: Yes Cancer History Comment: prostate, cyber knife readiation 2011 - Congenital Disorder History Hx Congenital Disorders: No - GI History Hx Gastrointestinal Disorders: Yes Gastrointestinal History Comment: CT showed diverticulosis. hiatal hernia - Other Health History Other Health History: MGUS. NON HEALING WOUND LT GALDAMEZ NOW HAS SCAB,TANG REDNESS. ARM RASH. CT scan showed plaque on aorta. SCLERA DERMA FOREARMS RESULT OF RX'S. OBESE HAS LOST 40LBS. NEUROPATHY - Chronic Pain History Chronic Pain: Yes (RELATED TO KIDNEY STONE AND DDD) - Surgical History Prior Surgeries: PACEMAKER 03/2014. tonsillectomy. lithotripsy UNSUCCESSFUL IN [place]. ANGIOGRAM. COLONOSCOPY ANE Review of Systems Review of Systems: - Pacemaker Date Pacemaker Last Checked: 10/20/17 ANE Patient History - Allergies Allergies/Adverse Reactions: Penicillins Allergy (Unknown, Verified 03/13/18 11:36) Itching codeine Allergy (Verified 03/13/18 11:36) nausea dabigatran etexilate mesylate [From Pradaxa] Allergy (Verified 03/13/18 14:12) UPSET STOMACH meperidine HCl [From Demerol] Allergy (Verified 03/13/18 14:12) NAUSEA - Home Medications Home Medications: Clobetasol Propionate/Emoll [Clobetasol Emollient 0.05% Crm] 15 gm TP BID PRN [Last Taken 06/04/18 21:00] Herbals/Supplements -Info Only 1 ea PO DAILY 11/23/14 [Last Taken 06/29/18] Multivitamins [Multivitamin (*)] 1 each PO DAILY 11/23/14 [Last Taken 06/29/18] Apixaban [Eliquis] 2.5 mg PO BID@12/06/14 [Last Taken 06/29/18 08:00] Ascorbic Acid [Vitamin C 500 mg (*)] 1,000 mg PO DAILY 12/06/14 [Last Taken 09/10] Atorvastatin Calcium [Lipitor 20 mg (*)] 20 mg PO HS 12/06/14 [Last Taken ] Cyanocobalamin [Vitamin B12 1000MCG/ML (*)] 1,000 mcg IJ Q30D 12/06/14 [Last Taken 06/29/18] Fluticasone Nasal [Flonase Nasal [place]] 2 sprays NASAL DAILY 12/06/14 [Last Taken 06/29/18] Furosemide [Lasix 20 MG (*)] 20 mg PO DAILY 12/06/14 [Last Taken 06/29/18] Glucosamine/Chondroitin [Glucosamine/Chondroitin (*)] 1 each PO DAILY 12/06/14 [ Last Taken 06/29/18] Levothyroxine [Synthroid 50 mcg (*)] 50 mcg PO DAILY06 12/06/14 [Last Taken 09/10] Spironolactone 100 mg PO DAILY@12 12/06/14 [Last Taken 06/29/18] Gabapentin [Neurontin 300 MG (*)] 600 mg PO QID PRN 03/13/18 [Last Taken ] Cholecalciferol Vit D3 [Vitamin D3 (*)] 5,000 units PO DAILY 06/23/18 [Last Taken 06/29/18] - Smoking Hx Smoking Status: Former smoker - Family Anes Hx Family Hx Anesthesia Complications: NONE ANE Labs/Vital Signs - Vital Signs Height: 183 cm Weight: 163.3 kg
[2018-06-30] MEDS ORDERED: PROPOFOL/EMULSION 500 MG/50 ML BOTTLE IV ONE (08:21)
[2018-06-30] MEDS ORDERED: ePHEDrine SULFATE 25 MG/5 ML SYR ONE (08:25)
[2018-06-30] MEDS ORDERED: PHENYLEPHRINE HCL 100 MCG/ML SYR ONE (08:25)
[2018-06-30] MEDS ORDERED: fentaNYL 100 MCG/2 ML INJ ONE (08:26)
[2018-06-30] MEDS ORDERED: ONDANSETRON 4 MG/2 ML VIAL ONE (08:52)
[2018-06-30] MEDS ORDERED: DEXAMETHASONE 4 MG/ML VIAL ONE (08:52)
[2018-06-30] MEDS ORDERED: PROTAMINE SULFATE 50 MG/5 ML VIAL IVP ONE (10:26)
[2018-06-30] MEDS ORDERED: SUGAMMADEX SODIUM 200 MG/2 ML VIAL IVP ONE (10:27)
[2018-06-30] MEDS ORDERED: ONDANSETRON 4 MG/2 ML VIAL IVP PRN (11:23)
[2018-06-30] MEDS ORDERED: NITROGLYCERIN 0.4 MG BTL SL PRN (11:23)
[2018-06-30] MEDS ORDERED: ATROPINE SULFATE 1 MG/10 ML SYR IVP PRN (11:23)
[2018-06-30] MEDS ORDERED: IBUPROFEN 200 MG TAB PO ONE ×2 (11:26→11:32)
--- NOTE | 2018-06-30 12:20 | CPIP ---
[f rep st] INVASIVE CARDIAC PROCEDURE DATE OF PROCEDURE: 06/30/2018 INDICATIONS FOR PROCEDURE: Hematuria, elevated CHADS2-VASc score, and paroxysmal atrial fibrillation . CO-SURGEON: Dr. Sai Hernandez, Dr. Nickolas Hoffman. PROCEDURE: 1. 8-Kazakh sheath in right common vein upsized to a 12-Kazakh sheath. 2. Transseptal access with Trail catheter and wire. 3. Placement of pigtail in left atrial appendage. HISTORY: Briefly, this is a 73-year-old male with history of paroxysmal atrial fibrillation, elevate d CHADS2-VASc score, hematuria on anticoagulation therapy, who underwent a DON for evaluation for a W atchman. The patient did have on pre-DON a lipomatous hypertrophied septum with a wide-mouth appenda ge, which did appear to have good distal depth. The patient was consented for Watchman placement. DESCRIPTION OF PROCEDURE: After informed consent was obtained, the patient was brought to [facility], where the right groin was prepped and draped in a sterile fashion. Using an 8-Kazakh sheath in the right common femoral vein, it was upsized to a 12-Kazakh sheath with dilators. Transfemoral access with a Trail catheter wire, the patient was administered a total of 16,000 of heparin IV. Initially a doub le curve sheath was placed across the septum and a pigtail catheter was placed into the appendage. O f note, in our crossing of the septum, the patient had severe lipomatous hypertrophy with only a tiny area of thin septum though the stick was performed in this thin area, this still was quite difficult to get the sheath across, but though it was successful. Once the sheath was across, an angled pigta il was placed in the left atrial appendage. Angiography of the left atrial appendage showed a very w martha mouth appendage with a severe anterior curve chicken wing anatomy. Attempts to advance a double curve sheath were not successful secondary to the septal hypertrophy, as well as angulation of the ap pendage. The sheath was removed and attempts were made with an anterior curve sheath and a straight pigtail catheter was utilized instead of the angled pigtail catheter. However, this again was diffic ult to put the sheath in. Given the multiple manipulations for the bilateral sheaths and the hypertr ophied septum as well as the fact that the ostial width of the appendage measured at least 25 mm by a ngiographic measurement with a very extreme anterior curve, I was not sure that any device would be a ble to sit in this area given the lack of usable depth rather than sticking lower on the septum for a ttempt at a re-access. I decided at this point in time, the patient would most likely not be suitabl e for having the device placed. We decided then at this point, the pigtail catheter was removed. Th e sheath was pulled back across the septum. The right groin was closed with a pursestring suture. T he patient tolerated the procedure well. No complications. IMPRESSION: 1. Broccoli/chicken wing anatomy with not visible usable depth. 2. Very difficult thickened septum which made angulation of the sheath to the appendage extremely di fficult. PLAN: Given the patient's extremely thickened septum as well as angulated and wide-mouth left atrial appendage, I feel the patient would be better suited at this point to have an outpatient surgical ev aluation for an atrial clip. The patient will be kept in overnight and be discharged within 24 hours . /[id number]/MODL
--- NOTE | 2018-06-30 12:33 | PDMN ---
Medical Necessity Medical necessity: [facility] [place] [id number] Left Atrial Appendage Closure, Percutaneous, 73 yo s /p CPT 56988, Watchman LAAC, [facility] IP only
--- NOTE | 2018-06-30 16:53 | PDCONSULT ---
Analysis Internship Note: Eye Note Called to see patient following cardiac surgery awoke with painful, tearing right eye. Now somewhat better. Exam: Va OD 20/80 Near card SLE: Inferonasal corneal abrasion measuring approximately 3mm. Anterior segment otherwise within normal limits OU. A/P: Corneal abrasion, OD. Discussed at length with patient. Apply erythromycin ointment into right eye TID x 3 days.
[2018-06-30] MEDS ORDERED: CLOBETASOL 0.05% 15 GM CRTUBE TP PRN (18:21)
[2018-06-30] MEDS: METOPROLOL TARTRATE 25 MG TAB PO SCH (20:21)
[2018-06-30] MEDS: GABAPENTIN 300 MG CAP PO PRN (20:22)
[2018-06-30] MEDS: ERYTHROMYCIN 0.5% 1 GM OPHT.OINT RTEYE SCH (20:24)
[2018-06-30] MEDS ORDERED: ATORVASTATIN CALCIUM 20 MG TAB PO SCH (21:00)
[2018-07-01] MEDS ORDERED: LEVOTHYROXINE 50 MCG TAB PO SCH (06:00)
[2018-07-01 07:22] VITALS: BP 113/71
[2018-07-01] MEDS ORDERED: APIXABAN 5 MG TAB PO SCH (08:00)
[2018-07-01] MEDS: METOPROLOL TARTRATE 25 MG TAB PO SCH (08:32)
[2018-07-01] MEDS: GABAPENTIN 300 MG CAP PO PRN (08:33)
[2018-07-01] MEDS: ERYTHROMYCIN 0.5% 1 GM OPHT.OINT RTEYE SCH (08:34)
[2018-07-01] MEDS ORDERED: Herbals/Supplements -Info Only PO SCH (09:00)
[2018-07-01] MEDS ORDERED: FUROSEMIDE 20 MG TAB PO SCH (09:00)
[2018-07-01] MEDS ORDERED: MULTIVITAMINS 1 EACH TAB PO SCH (09:00)
[2018-07-01] MEDS ORDERED: CHOLECALCIFEROL VIT D3 1,000 UNITS TAB PO SCH (09:00)
[2018-07-01] MEDS ORDERED: ASCORBIC ACID 500 MG TAB PO SCH (09:00)
[2018-07-01] MEDS ORDERED: GLUCOSAMINE/CHONDROITIN CAP PO SCH (09:00)
[2018-07-01] MEDS ORDERED: FLUTICASONE NASAL 120 SPRAYS/16 GM MDI EACHNARE SCH (09:00)
--- NOTE | 2018-07-01 11:34 | GDS ---
[f rep st] DISCHARGE SUMMARY DISCHARGE DIAGNOSES: 1. Permanent atrial fibrillation with bleeding issues on Eliquis. 2. Unsuccessful Watchman placement due to unfavorable left atrial appendage anatomy. 3. Corneal abrasion in this admission. 4. Obstructive sleep apnea on continuous positive airway pressure. 5. Obesity with a body mass index of 48. 6. Monoclonal gammopathy. 7. History of chronic kidney disease. 8. BPH. 9. History of prostate cancer. 10. Permanent pacemaker for atrial fibrillation with complete heart block. PROCEDURE: 06/30/2018: Cardiac catheterization procedure with angiography of the left atrial append age showing a very wide mouth appendage and severe anterior curve with chicken wing anatomy. Attempt s to advance a double curve sheath were not successful, secondary to septal hypertrophy, as well as a ngulation of the appendage. BRIEF HISTORY: Please see dictated H and P from our office for complete details. In brief, the татьяна ent is a 73-year-old male with a history of permanent atrial fibrillation, elevated CHADS-VASc score, and difficulty tolerating long-term anticoagulation due to hematuria. It was initially thought his anatomy was suitable for Watchman device; however, on actual angiography, he was noted to have brocco li/chicken wing formation to his left atrial appendage. The procedure was aborted. On day of discharge, patient denies any groin pain. He has had 2 bouts of loose bowel movements. Du ring his intubation, he suffered a corneal abrasion. He will be discharged on ophthalmic erythromyci n. PHYSICAL EXAM: VITAL SIGNS: On day of discharge, blood pressure of 113/71, heart rate 74, respirati ons 20, O2 saturation 90% on room air. GENERAL: He is a pleasant male in no apparent distress. LALO NT: Normocephalic, atraumatic. HEART: Irregularly irregular. GROINS: Right groin site without br uit. Groin suture was removed without issues. RESULTS PENDING: None. DIET: Per previous. ACTIVITY: Groin precautions were reviewed. DISCHARGE MEDICATIONS: Please see medication reconciliation. He is to continue all his home medicat ions as at present. He is being given a prescription for erythromycin 0.5% ointment to be applied t. i.d. to right eye x3 days. DISCHARGE INSTRUCTIONS: 1. Follow up with Dr. Funez as scheduled. 2. Complete the erythromycin as scheduled. 3. Groin precautions as reviewed. /[id number]/MODL
[2018-07-01] MEDS ORDERED: SPIRONOLACTONE 100 MG TAB PO SCH (12:00)
== END 2018-07-01 11:29 | disposition home or self-care (01) | DRG 264 ==
LOC: FCATH 06:45 → F2W 11:05 → OBSVTOIN 11:25 → F2W 12:16
PROVIDERS: ADMIT Internal Medicine Cardiovascular Disease; ATTEND Internal Medicine Cardiovascular Disease
PROC: 02JA4ZZ Inspection of Heart, Percutaneous Endoscopic Approach (ICD-10-PCS; principal; 2018-06-30)
DX: I48.2 Chronic atrial fibrillation (principal); Q21.0 Ventricular septal defect; Z68.42 Body mass index [BMI] 45.0-49.9, adult; Z79.01 Long term (current) use of anticoagulants; S05.00XA Injury of conjunctiva and corneal abrasion without foreign body, unspecified eye, initial encounter; Y70.8 Miscellaneous anesthesiology devices associated with adverse incidents, not elsewhere classified; G47.33 Obstructive sleep apnea (adult) (pediatric); E66.9 Obesity, unspecified; D47.2 Monoclonal gammopathy; N18.9 Chronic kidney disease, unspecified; N40.0 Benign prostatic hyperplasia without lower urinary tract symptoms; Z85.46 Personal history of malignant neoplasm of prostate; Z95.0 Presence of cardiac pacemaker; Z87.891 Personal history of nicotine dependence
CPT/HCPCS: C1769; C1893; J0690; J1100; J1644; J2370; J2405; J2704; J2720; J3010; Q9967

== ENCOUNTER 2018-07-24 17:46 | Inpatient (IN) | payer OTHER | END 2018-07-29 15:02 | disposition home or self-care (01) | LOC: F3N 22:22 ==